=== PATIENT | female | born 1985 | race Caucasian/White ===

== ENCOUNTER → 2018-05-12 13:57 | Observation (INO) ==
--- NOTE | 2018-05-12 11:28 | OB/GYN Progress Note ---
Date of Encounter: 05/12/18 Time of Encounter: 11:25 - Assessment and Plan (1) and not yet delivered in third trimester Current Visit: Yes Status: Acute (2) 32 weeks gestation of Current Visit: Yes Status: Acute (3) Nausea and vomiting during Current Visit: Yes Status: Acute (4) Hematemesis Current Visit: Yes Status: Acute Qualifiers: Nausea presence: with nausea Qualified Code(s): K92.0 - Hematemesis (5) Right upper quadrant abdominal pain affecting in third trimester Current Visit: Yes Status: Acute We will order liver enzymes on the patient along with bilateral since we will check CBC and electrolytes and pancreatic enzymes. (6) History of cholestasis during Current Visit: Yes Status: Acute (7) Substance abuse affecting in third trimester, antepartum Current Visit: Yes Status: Acute Subjective - Subjective Interval history: Patient is a 33-year-old 4 para 2011 at 32-1/7 weeks who presented to labor and delivery with complaint of decreased movement, nausea vomiting, hematemesis, and right upper quadrant pain. Patient states that she woke up this morning had not felt the baby move and had a episode of emesis that had bright red blood in the. She has been complaining of right upper quadrant pain for the past 2 days. She did discuss this with her primary OB felt it might be a contraction because there was some contractions on the NST patient states is a sharp stabbing pain. Patient's already had a cholecystectomy. Patient is being followed closely for cholestasis in . Her bile acids were 11 last time she had them drawn, patient does admit to using cocaine approximately 3-1/2 weeks ago and is on Subutex. She states she had some social stressors that caused her to revert to the cocaine. She states she has not used anything in 3- 1/2 weeks. Patient states she does not really have much of an appetite that could lead if she has to. Denies any fevers or chills at home. Since arriving to the hospital she has been feeling some flutters is not really feeling any contractions and has had no other episodes of emesis. Antepartum ROS: other (Decreased movement, hematemesis, right upper quadrant.) Objective - Vital Signs Vital Signs: Intake and Output 05/11/18 05/12/18 05/12/18 23:59 07:59 15:59 Other: Weight 74.5 kg Patient Weight 05/12/18 23:59 Weight 74.5 kg - Exam FHR: category 1 FHR comments: heart tones 140s reassuring occasional contraction seen Auscultation: bilateral: normal Abdomen: Present: normal appearance, gravid (Nontender to palpation), other (No epigastric pain to palpation but has severe tenderness in the right upper reji drant under her ribs.)
[2018-05-12 11:51] LABS: Bilirubin,Urine Negative (Negative); Blood,Urine Negative (Negative); Clarity,Urine Cloudy (Clear); Color,Urine Yellow (Yellow); Glucose,Urine (UA) Normal (Normal); Ketones,Urine Negative (Negative); Leukocyte Esterase,Urine Large (Negative); Nitrite,Urine Negative (Negative); Protein,Urine Negative (Neg-Trace); Urobilinogen,Urine Normal (Normal)
[2018-05-12 11:55] LABS: Basophils % 0.3 %; Eosinophils # 0.2 K/mcL (0.0-0.6); Eosinophils % 3.3 %; Hematocrit 30.6 % (35.3-44.9); Hemoglobin 10.7 g/dL (11.5-15.4); Immature Granulocytes % 0.5 % (0-4); Lymphocytes # 0.8 K/mcL (0.6-4.6); Lymphocytes % 14.4 %; Mean Corpuscular Hemoglobin 30.4 pg (28.0-33.3); Mean Corpuscular Volume 86.9 fL (83.0-100.0); Mean Platelet Volume 11.5 fL (9.4-12.4); Monocytes # 0.3 K/mcL (0.0-1.3); Monocytes % 5.5 %; Neutrophils # 4.4 K/mcL (1.6-8.9); Platelet Count 138 K/mcL (140-400); Red Blood Count 3.52 M/mcL (3.82-4.97); Red Cell Distribution Width 13.2 % (11.5-14.5)
[2018-05-12 11:56] LABS: Bacteria,Urine Many per hpf (None-Few); Hyaline Casts,Urine None Seen per lpf (None-Few); RBC,Urine 0-3 per hpf (0-3); Squamous Epithelial Cell,Urine Many per lpf (None-Few)
[2018-05-12 12:06] LABS: Bilirubin,Direct 0.1 mg/dL (0.0-0.2); Bilirubin,Total 0.3 mg/dL (0.3-1.0); Potassium 3.8 mEq/L (3.5-5.1)
[2018-05-12 12:07] LABS: Amphetamine Screen,Urine Negative ng/mL (Cutoff=1000); Barbiturate Screen,Urine Negative ng/mL (Cutoff=200); Benzodiazepines Screen,Urine Negative ng/mL (Cutoff=200); Cannabinoid Screen,Urine Negative ng/mL (Cutoff = 50); Cocaine Screen,Urine Negative ng/mL (Cutoff= 300); Opiate Screen,Urine Negative ng/mL (Cutoff=300); Phencyclidine Screen,Urine Negative ng/mL (Cutoff=25)
[~2018-05-12 13:57] MED LIST: Pantoprazole 40 MG VIAL IVP ONE; Ringers Solution, Lactated 1,000 ML IVC SCH; Ringers Solution, Lactated 1,000 ML ONE
--- NOTE | 2018-05-12 14:39 | OB/GYN Progress Note ---
Date of Encounter: 05/12/18 Time of Encounter: 14:35 - Assessment and Plan (1) and not yet delivered in third trimester Current Visit: Yes Status: Acute (2) 32 weeks gestation of Current Visit: Yes Status: Acute (3) Nausea and vomiting during Current Visit: Yes Status: Acute (4) Hematemesis Current Visit: Yes Status: Acute Patient did receive 40 mg of Protonix IVPB Qualifiers: Nausea presence: with nausea Qualified Code(s): K92.0 - Hematemesis (5) Right upper quadrant abdominal pain affecting in third trimester Current Visit: Yes Status: Acute Patient to follow up with her primary [employer] if pain gets worse to go to the emergency room (6) History of cholestasis during Current Visit: Yes Status: Acute (7) Substance abuse affecting in third trimester, antepartum Current Visit: Yes Status: Acute Subjective - Subjective Interval history: Patient's sleeping and hungry. Baby is moving well is not having any complaints at this time of that. Patient's still having the pain in the right upper quadrant but only with palpation. She was having contractions spaced out with IV hydration and we did give her some Protonix. This point I see nothing obstetrical contribute to her pain all labs are normal, we are still waiting for the bile acids to come back in a couple days. I recommended she follow up with her primary OB and if pain is persistent to go to the emergency room. Objective - Vital Signs Vital Signs: Intake and Output 05/11/18 05/12/18 05/12/18 23:59 07:59 15:59 Other: Weight 74.5 kg Patient Weight 05/12/18 23:59 Weight 74.5 kg - Exam FHR: category 1 FHR comments: heart tones 140s and reassuring no contractions and Abdomen: Present: gravid Uterus: Present: normal Cervical dilation: 0 Cervix effacement: thick station: NE - Labs Labs: Abnormal lab results RBC 3.52 M/mcL (3.82-4.97) L 05/12/18 11:30 Hgb 10.7 g/dL (11.5-15.4) L 05/12/18 11:30 Hct 30.6 % (35.3-44.9) L 05/12/18 11:30 Plt Count 138 K/mcL (140-400) L 05/12/18 11:30 Alkaline Phosphatase 125 Units/L (34-104) H 05/12/18 11:30 Lactate Dehydrogenase 106 Units/L (140-271) L 05/12/18 11:30 Urine Clarity Cloudy (Clear) A 05/12/18 11:30 Ur Leukocyte Esterase Large (Negative) H 05/12/18 11:30 Urine Microscopic WBC 5-15 per hpf (0-3) H 05/12/18 11:30 Ur Squamous Epith Cells Many per lpf (None-Few) H 05/12/18 11:30 Urine Bacteria Many per hpf (None-Few) H 05/12/18 11:30 Ur Culture Indicated? NO. (NO) A 05/12/18 11:30
== END | disposition home or self-care (01) ==
LOC: 1NENULAB
PROVIDERS: ADMIT Registered Nurse; ATTEND Registered Nurse

== ENCOUNTER 2018-06-15 06:00 | Inpatient (IN) ==
[2018-06-15] MEDS ORDERED: Metoclopramide 10 MG/2 ML VIAL IVP PRN (06:57)
[2018-06-15] MEDS ORDERED: Penicillin G Potassium 5,000,000 UNIT in 0.9 % Sodium Chloride Mini Bag 100 ML IVPB ONE (06:57)
[2018-06-15] MEDS ORDERED: Naloxone 0.4 MG/ML INJ IVP PRN (06:57)
[2018-06-15] MEDS ORDERED: Famotidine 20 MG/2 ML VIAL IVP PRN (06:57)
[2018-06-15] MEDS ORDERED: Ringers Solution, Lactated 1,000 ML IVC SCH (07:00)
--- NOTE | 2018-06-15 07:22 | Anesthesia Evaluation PreOp ---
Date of Encounter: 06/15/18 Time of Encounter: 07:09 - Past History Planned Operation: 37wk induction for cholestatis, Cardiac History: Denies any Significant Hx Pulmonary History: Denies Any Significant HX CHILD ADOLESCENT CARE History: Other (previous gymnastics injury with 2 lower lumbar disc bulgs with occ left leg numbess denies any muscle weakness. reports not positionally dependent with symptoms.) Other Medical History: Hepatic (cholestatis currently on Ursodiol.), Other (2 1/2 months ago cocaine usage, currently on subutex, anxiety, depression) Anesthesia History: No Prior Anesthetic Complications, Past Anesthesia (2 previous epidurals patient stated they went little higher before, denies any family hx of comp.) Alcohol Use: none Drug use: cocaine Medications and Allergies Abilify 5 mg PO ONCE 05/12/18 [History] Tablet 1 tab PO DAILY 05/12/18 [History] Subutex 16 mg PO ONCE 05/12/18 [History] Ursodiol 300 mg PO QID 05/12/18 [History] Wellbutrin 150 mg PO ONCE 05/12/18 [History] Allergy/AdvReac Type Severity Reaction Status Date / Time Sulfa (Sulfonamide Allergy Mild Anaphylaxis Verified 06/15/18 06:53 Antibiotics) gluten Allergy Gastrointestinal Verified 06/15/18 06:54 Upset Anesthesia Exam - HEENT Pupil (Motor): Pupils equal Mallampati: I Teeth: Normal Oral Opening: Greater than 3 - CHILD ADOLESCENT CARE LOC: Oriented CHILD ADOLESCENT CARE Motor: Normal RUE, Normal LUE, Normal RLE, Normal LLE, Normal Face CHILD ADOLESCENT CARE Sensory: Normal: RUE, LUE, RLE, LLE, Face - Cardiac Rhythm: Regular Murmur: None - Pulmonary Breath Sounds: bilateral Clear Respiratory Effort: Symmetrical Anesthesia Assess/Plan ASA Score: 2 Level of consciousness: Cooperative, Oriented Anesthetic Plan: General, Spinal, Epidural Monitoring Plan: Standard Monitors Recovery Plan: PACU
[2018-06-15 07:26] LABS: Eosinophils # 0.2 K/mcL (0.0-0.6); Eosinophils % 3.8 %; Hematocrit 32.8 % (35.3-44.9); Hemoglobin 11.3 g/dL (11.5-15.4); Immature Granulocytes % 0.2 % (0-4); Lymphocytes # 0.9 K/mcL (0.6-4.6); Lymphocytes % 18.8 %; Mean Corpuscular HGB Conc 34.5 g/dL (31.6-35.5); Mean Corpuscular Hemoglobin 30.8 pg (28.0-33.3); Mean Corpuscular Volume 89.4 fL (83.0-100.0); Mean Platelet Volume 12.4 fL (9.4-12.4); Monocytes # 0.3 K/mcL (0.0-1.3); Monocytes % 7.5 %; Neutrophils # 3.2 K/mcL (1.6-8.9); Platelet Count 101 K/mcL (140-400); Red Blood Count 3.67 M/mcL (3.82-4.97); Red Cell Distribution Width 13.2 % (11.5-14.5); Segmented Neutrophils % 69.7 %
[2018-06-15] MEDS ORDERED: Epidural Premix (fent/bupiv) 110 ML EP SCH (07:30)
[2018-06-15] MEDS ORDERED: miSOPROStol 25 MCG TABLET VG PRN (07:41)
[2018-06-15] MEDS ORDERED: Penicillin G Potassium 2,500,000 UNIT in 0.9 % Sodium Chloride 100 ML IVPB SCH (08:00)
--- NOTE | 2018-06-15 08:21 | OB/GYN History & Physical ---
Date of Encounter: 06/15/18 Time of Encounter: 08:14 Assessment and Plan (1) and not yet delivered in third trimester Current visit: Yes Status: Acute (2) Gestational diabetes Current visit: Yes Status: Acute Qualifiers: Gestational diabetes mellitus control: diet-controlled Trimester: third trimester Qualified Code(s): O24.410 - Gestational diabetes mellitus in , diet controlled (3) Elective induction of labor planned Current visit: Yes Status: Acute We will induce with a Garner catheter and Cytotec plan is to anticipate vaginal delivery (4) 37 or more weeks gestation of Current visit: Yes Status: Acute (5) History of cholestasis during Current visit: No Status: Acute (6) Substance abuse affecting in third trimester, antepartum Current visit: No Status: Acute (7) Positive GBS test Current visit: Yes Status: Acute We will start penicillin 5 million units loading dose and 2.5 every 4 hours unti l delivery History of Present Illness HPI: Ms. Dorsey is a 33 year old female 4 para 2011 at 37-0/7 weeks who is brought in for induction of labor secondary to cholestasis in . Patient having issues with pruritus last bile acid was 34. It is recommended once she got to 37 weeks she would be induced. Patient is an A1 gestational diabetic has been well-controlled unfortunately has not been checking her sugars for the last week because her insurance would not approve first streps and she was waiting for the prior authorization to go through she has been doing blood sugars prior to that there were running in the 80s to 90s for fastings. And less than 124 2 hour postprandials. Patient has been having contractions but nothing she can time and she is GBS positive. Patient is penicillin negative recommend starting penicillin. She states she typically has long labors however patient's last induction was at term that he only use Pitocin she had an unfavorable cervix from what she is telling me. I recommended starting her with a Garner catheter and vaginal Cytotec to get labor going. Patient does take Suboxone. She is no longer in a group has been transferred to another group due to multiple positive screens. Patient does have active Scripts per her [facility] report. Patient is A positive rubella positive GBS positive Vericella positive Past Med Surg Social Fam HX - Past Medical History Source: patient Medical history: asthma Additional medical history: ciliac Disease, cholestasis in , A1 gesta tional diabetic Psychiatric history: anxiety, bipolar, depression - Past Surgical History Surgical History: cholecystectomy Additional surgical history: D&C 2008 - Social History Smoking Status: Never smoker Smokeless Tobacco Status: No Alcohol use: none Drug use: cocaine, other (Subutex) Current living situation: Home - Independent Activity Level: Independent ambulation Recent Out of Country Travel Within the Last 8 Weeks: No Exposure or Possible Exposure to Illness During Travel: No - Family History Mother Living Status: Still Living Hx Family Cardiac Disorders: No Hx Family Respiratory Disorders: No Hx Family Cancer: Yes (lymphoma) Hx Family GI Disorders: Yes (IBD) Hx Family Endocrine Disorder: No Hx Family Neuromuscular Disorders: No Hx Family Neurologic Disorders: No Hx Family HEENT Disorders: No Hx Family Autoimmune Disorders: No - Additional Family History Additional family history: Family history none contributory at this time Obstetrical History - Pregnancies : 4 Para: 2 Term: 1 : 0 Ab's: 1 Livin Medications and Allergies Abilify 5 mg PO ONCE 05/12/18 [History] Tablet 1 tab PO DAILY 05/12/18 [History] Subutex 16 mg PO ONCE 05/12/18 [History] Ursodiol 300 mg PO QID 05/12/18 [History] Wellbutrin 150 mg PO ONCE 05/12/18 [History] Allergy/AdvReac Type Severity Reaction Status Date / Time Sulfa (Sulfonamide Allergy Mild Anaphylaxis Verified 06/15/18 06:53 Antibiotics) gluten Allergy Gastrointestinal Verified 06/15/18 06:54 Upset Review of System OB All systems PM: reviewed and no additional remarkable complaints except as stated Exam - Constitutional Constitutional: well developed, well nourished, no acute distress, average body habitus - HEENT HEENT: EOMI, PERRL, Mucus Membranes Moist - Neck Neck exam: full ROM - Lungs Respiratory exam: CTAB - Cardiovascular Cardiovascular exam: RRR - Abdomen Abdomen: Present: bowel sounds normal, gravid ( heart tones 140s reactive contractions every 2 minutes) - Extremities Extremities exam: calf tenderness - Vagina Vagina: Present: normal moisture - Cervix Dilation: 1 Effacement: 80 Station: -2 - Uterus Uterus exam: Present: enlarged Results Result Diagrams: 06/15/18 07:00 06/15/18 07:00 Abnormal lab results RBC 3.67 M/mcL (3.82-4.97) L 06/15/18 07:00 Hgb 11.3 g/dL (11.5-15.4) L 06/15/18 07:00 Hct 32.8 % (35.3-44.9) L 06/15/18 07:00 Plt Count 101 K/mcL (140-400) L 06/15/18 07:00 All other labs normal. - VTE Reasons for not Prescribing Prophylaxis: Treatment not Indicated - Low risk for VTE
[2018-06-15 08:23] LABS: Amphetamine Screen,Urine Negative ng/mL (Cutoff=1000); Barbiturate Screen,Urine Negative ng/mL (Cutoff=200); Benzodiazepines Screen,Urine Negative ng/mL (Cutoff=200); Cannabinoid Screen,Urine Negative ng/mL (Cutoff = 50); Cocaine Screen,Urine Negative ng/mL (Cutoff= 300); Opiate Screen,Urine Negative ng/mL (Cutoff=300); Phencyclidine Screen,Urine Negative ng/mL (Cutoff=25)
--- NOTE | 2018-06-15 13:06 | Anesthesia Procedures ---
Date of Encounter: 06/15/18 Time of Encounter: 12:38 Procedures: Anesthesia - Epidural/Spinal Patient ID/Chart reviewed: Yes Patient examined: Yes OB Eval: Gestational age: 37 OB Eval: : 4 OB Eval: Hx Para: 2 OB Eval: Contractions: Non-stressed pattern Consent Obtained: Yes Supplemental Oxygen: None/Room Air Site Prep: Aseptic Technique, Sterile prep and drape, 0.5% Chlorhexidine/Alcohol Patient position: upright Local Anesthetic: Lidocaine 1% Amount of Local Anesthetic used: 2 Touhy Needle Gauge: 18 Touhy Needle Depth (cm): 7 Catheter Depth at Skin (cm): 12 Test Dose (1.5% Lido + Epi): Volume given (mls): 4 Test Dose Result: Negative Loading Dose: Other: 10ml from solution Loading Dose Administered: Thru Catheter Infusion Med: 0.125% Bupivacaine w/ 2 mcg/ml Fentanyl Infusion Rate (mls/hr): [address]: Tegaderm, Tape Interspace Used: L3-L4 Loss of Resistance (LIZETH): Yes (saline) Blood: No CSF: Yes (with 25g sprotte only, no INJ) Paresthesia: No Procedure: vss though out procedure, FHR stable per RN's
--- NOTE | 2018-06-15 13:33 | OB Labor Progress Note ---
Date of Encounter: 06/15/18 Time of Encounter: 13:29 Labor Progress Note - Subjective Subjective: The patient's Garner catheter is out epidural placed and is comfortable at this time. - Cervix Cervix: 4/80/-2 AROM large amount clear fluid - Heart Tones Heart Tones: heart tones 140s reactive - Prichard Prichard: IUPC placed contractions every 2 minutes adequate - Interventions Interventions: If patient does not make cervical change on her own will augment with Pitocin plan is to anticipate vaginal deliver
[2018-06-15] MEDS ORDERED: Oxytocin 20 units/ LR 1000 mL 20 UNIT/1,000 ML BAG IVC SCH ×2 (15:30→20:39)
--- NOTE | 2018-06-15 16:22 | OB Labor Progress Note ---
Date of Encounter: 06/15/18 Time of Encounter: 16:20 Labor Progress Note - Subjective Subjective: Patient comfortable with epidural - Cervix Cervix: 6-7/100/0 - Heart Tones Heart Tones: Baseline 150 Moderate variability Accelerations present 15x15 Deep variable decelerations and late decelerations FHR Category II - [place] [employer] [place] [employer]: Contractions every 2-3 minutes and palpate moderate. Coupleting at times - Interventions Interventions: SVE Position change to peanut ball left - Plan Physician notified: Yes Physician notified details: Dee notified of category II tracing - advised to proceed as planned Plan: Continue induction management Continue Accu-Cheks every 4 hours Frequent position changes with peanutball Increase Pitocin if needed Anticipate vaginal delivery
--- NOTE | 2018-06-15 17:58 | OB/GYN Procedure Note ---
Delivery - Delivery Date: 06/15/18 Provider: Adam Price Intrapartum events: none Delivery induction: terry, misoprostol Delivery augmentation: rupture of membranes Delivery monitor: external FHT, external uterine, internal uterine Anesthesia: epidural Quantitated Blood Loss: 100 - (s) A Delivery Date: 06/15/18 Delivery Time: 16:58 Presentation: vertex Position: OA Route of delivery: Gender: Female Viability: Viable Pounds: 7 Ounces: 0 Weight Gram: 3.17 kg at 1 minute: 2 at 5 mins: 9 Shoulder Dystocia: not encountered Specimens collected: cord blood Placenta: spontaneous Cord: nuchal cord, 3 umbilical vessels, delivered through nuchal - Repair Episiotomy: none Laceration Description: Periurethral (Right), Labial (Left) - Complications Delivery complications: none Delivery comments: Patient is a 33-year-old 4 para 2011 at 37-0/7 weeks who was brought in for an induction of labor secondary to cholestasis in . Patient been having issues that been monitored twice weekly with NSTs with elevated bile acids she was advised when she got to 37 week she will need to be induced she is also an A1 gestational diabetic relatively well controlled. She has not been able to do blood sugars for the past week when [facility] was waiting for the office to get her strips prior authorized. Patient was brought to labor and delivery where she received Terry catheter and vaginal Cytotec once catheter was out she was 4 cm she received an epidural and she was artificially ruptured. She did not require any additional augmentation patient progressed probably became complete and pushed for approximately 15 minutes delivering a viable female infant in occiput anterior presentation at 1658. There was a nuchal cord which was tight around the body and on which the patient delivered through was was delivered the infant was placed on the abdomen but we had minimal response cord was immediately cut and was taken over to the warmer Apgars were 2 at 5 minutes 9 at 5 minute infant weight was 7 lbs. 0 oz. Cord gases and blood were then collected placenta was then delivered spontaneously with a three-vessel cord. Paraprofessional Aide Dr. Price, anesthesia epidural, estimated blood loss 100 mL. Patient had a small right periurethral which was bleeding repaired with 3-0 Monocryl in a running stitch and she had a small labial laceration on the left with the distal aspect of the labia minora had been this was reapproximated with a 3-0 Monocryl vagina perineum was noted to be intact all needles lap sponge counts were correct she will be observed 2 hours before being taken floor. She was GBS positive had received antibiotics. - Disposition Mom disposition: stable in LDR disposition: stable in LDR
[2018-06-15] MEDS ORDERED: BuPROPion SR (12 HR) 150 MG TABLET PO SCH (20:39)
[2018-06-15] MEDS ORDERED: Acetaminophen 325 MG TABLET PO PRN (20:39)
[2018-06-15] MEDS ORDERED: ARIPiprazole 5 MG TABLET PO SCH (20:39)
[2018-06-15] MEDS: Ibuprofen 600 MG TABLET PO PRN (21:18)
[2018-06-15] MEDS: *HR* Buprenorphine HCl 8 MG TAB.SUBL SL SCH (23:00)
[2018-06-16] MEDS: Ibuprofen 600 MG TABLET PO PRN ×2 (03:32→09:40)
[2018-06-16 08:03] VITALS: BP 99/62
[2018-06-16] MEDS: *HR* Buprenorphine HCl 8 MG TAB.SUBL SL SCH (08:45)
[2018-06-16] MEDS ORDERED: Prenatal Vit/FA 1 EACH TABLET PO SCH (09:00)
[2018-06-16] MEDS ORDERED: NON-FORMULARY MEDICATION 1 EACH EACH (Prenatal Tablet 1 TAB) PO SCH (09:00)
--- NOTE | 2018-06-16 09:26 | Discharge Summary ---
Date of Encounter: 06/16/18 Time of Encounter: 09:24 - Discharge Diagnosis (1) Vaginal delivery Priority: Primary Status: Acute Comments: Patient meeting day one milestones. Pain well-controlled with prescribed medications. Voiding without difficulty, tolerating regular diet, bleeding light. No bowel movement yet. Anticipate discharge today to guest status (2) Intrahepatic cholestasis of , delivered, curr hospitalization Priority: Secondary Status: Acute Comments: Patient induced and delivered due to condition. Ursodiol discontinued at this time (3) Breast feeding status of mother Priority: Secondary Status: Acute Comments: support as needed We will provide prescription for breast pump (4) Periurethral laceration, delivered, current hospitalization Priority: Secondary Status: Acute Comments: Motrin, Dermoplast, ice packs as needed for discomfort (5) Gestational diabetes, diet controlled Priority: Secondary Status: Acute Comments: Patient is to follow-up in 4 weeks for 2 hour glucose tolerance test Qualifiers: Trimester: unspecified trimester Qualified Code(s): O24.410 - Gestational diabetes mellitus in , diet controlled - Discharge Medications Prescriptions: New Acetaminophen [Tylenol] 650 mg PO Q6HR PRN tablet PRN Reason: Mild Pain Ibuprofen [Motrin] 600 mg PO Q6HR PRN #60 tablet PRN Reason: Cramping Docusate [Colace] 100 mg PO BID capsule Continued Wellbutrin 150 mg PO ONCE Subutex 16 mg PO ONCE Tablet 1 tab PO DAILY Abilify 5 mg PO ONCE Discontinued Ursodiol 300 mg PO QID Home Medications: Abilify 5 mg PO ONCE 05/12/18 [History] Tablet 1 tab PO DAILY 05/12/18 [History] Subutex 16 mg PO ONCE 05/12/18 [History] Wellbutrin 150 mg PO ONCE 05/12/18 [History] Acetaminophen [Tylenol] 650 mg PO Q6HR PRN tablet 06/16/18 [Rx] Docusate [Colace] 100 mg PO BID capsule 06/16/18 [Rx] Ibuprofen [Motrin] 600 mg PO Q6HR PRN #60 tablet 06/16/18 [Rx] Allergies/Adverse Reactions: Allergy/AdvReac Type Severity Reaction Status Date / Time Sulfa (Sulfonamide Allergy Mild Anaphylaxis Verified 06/15/18 06:53 Antibiotics) gluten Allergy Gastrointestinal Verified 06/15/18 06:54 Upset Data Procedures and tests throughout hospitalization: Laboratory Tests 06/15/18 06/15/18 06/15/18 07:00 07:00 07:00 WBC 4.5 RBC 3.67 L Hgb 11.3 L Hct 32.8 L MCV 89.4 MCH 30.8 MCHC 34.5 RDW 13.2 Plt Count 101 L MPV 12.4 Immature Gran % 0.2 Seg Neutrophils % 69.7 Lymphocytes % 18.8 Monocytes % 7.5 Eosinophils % 3.8 Basophils % 0.0 Neutrophils # 3.2 Lymphocytes # 0.9 Monocytes # 0.3 Eosinophils # 0.2 Basophils # 0.0 Glucose 98 POC Glucose Urine Opiates Screen Negative Ur Barbiturates Screen Negative Ur Phencyclidine Scrn Negative Ur Amphetamines Screen Negative U Benzodiazepines Scrn Negative Urine Cocaine Screen Negative U Marijuana (THC) Screen Negative Ur Drug Screen Interp See Below 06/15/18 06/15/18 06/15/18 11:12 15:20 16:22 WBC RBC Hgb Hct MCV MCH MCHC RDW Plt Count MPV Immature Gran % Seg Neutrophils % Lymphocytes % Monocytes % Eosinophils % Basophils % Neutrophils # Lymphocytes # Monocytes # Eosinophils # Basophils # Glucose POC Glucose 81 78 90 Urine Opiates Screen Ur Barbiturates Screen Ur Phencyclidine Scrn Ur Amphetamines Screen U Benzodiazepines Scrn Urine Cocaine Screen U Marijuana (THC) Screen Ur Drug Screen Interp Labs on day of discharge: Labs from last 24 hours 06/15/18 06/15/18 06/15/18 16:22 15:20 11:12 POC Glucose 90 78 81 Date of admission: 06/15/18 06:17 Primary care physician: PCP NONE Consults: 06/15/18 06:59 Consult to Web Master (W&C) [CONS] Routine Reason For Exam: Reason for SW Consult: cocaine use during no custody of other children, paternity 06/15/18 20:39 Consult to Professor Of Radiology [CONS] Routine Comment: Vaginal delivery, consult needed Consult to Web Master [CONS] Routine Reason for SW Consult: subutex use Discharging clinician: Matilda Nelson Anticipated date of discharge: 06/16/18 - Patient Status Disposition: Home, Self-Care Condition: Good Functional capacity at discharge: independent ambulation Overall status at discharge: patient is progressing back to baseline - Discharge Instructions Follow Up With: NONE,PCP [Primary Care Provider] - - Diet and Activity Activity: increase activity as tolerated Diet: regular diet Hospital Course Reason for admission: induction of labor (cholestasis and GDM), IUP at term Delivery: Episiotomy: none Laceration: other (labial/periurethral) Other procedures: none complications: none Discharge diagnosis: IUP at term delivered Ethel baby: female Hospital course: Delivery Date: 06/15/18 Provider: Adam Price Intrapartum events: none Delivery induction: terry, misoprostol Delivery augmentation: rupture of membranes Delivery monitor: external FHT, external uterine, internal uterine Anesthesia: epidural Quantitated Blood Loss: 100 - (s) Infant A Delivery Date: 06/15/18 Delivery Time: 16:58 Presentation: vertex Position: OA Route of delivery: Gender: Female Viability: Viable Pounds: 7 Ounces: 0 Weight Gram: 3.17 kg at 1 minute: 2 at 5 mins: 9 Shoulder Dystocia: not encountered Specimens collected: cord blood Placenta: spontaneous Cord: nuchal cord, 3 umbilical vessels, delivered through nuchal - Repair Episiotomy: none Laceration Description: Periurethral (Right), Labial (Left) - Complications Delivery complications: none Delivery comments: Patient is a 33-year-old 4 para 2011 at 37-0/7 weeks who was brought in for an induction of labor secondary to cholestasis in . Patient been having issues that been monitored twice weekly with NSTs with elevated bile acids she was advised when she got to 37 week she will need to be induced she is also an A1 gestational diabetic relatively well controlled. She has not been able to do blood sugars for the past week when out [facility] was waiting for the office to get her strips prior authorized. Patient was brought to labor and delivery where she received Terry catheter and vaginal Cytotec once catheter was out she was 4 cm she received an epidural and she was artificially ruptured. She did not require any additional augmentation patient progressed probably became complete and pushed for approximately 15 minutes delivering a viable female infant in occiput anterior presentation at 1658. There was a nuchal cord which was tight around the body and on which the patient delivered through was infant was delivered the infant was placed on the abdomen but we had minimal response cord was immediately cut and infant was taken over to the warmer Apgars were 2 at 5 minutes 9 at 5 minute infant weight was 7 lbs. 0 oz. Cord gases and blood were then collected placenta was then delivered spontaneously with a three-vessel cord. Host Coordinator Dr. Price, anesthesia epidural, estimated blood loss 100 mL. Patient had a small right periurethral which was bleeding repaired with 3-0 Monocryl in a running stitch and she had a small labial laceration on the left with the distal aspect of the labia minora had been this was reapproximated with a 3-0 Monocryl vagina perineum was noted to be intact all needles lap sponge counts were correct she will be observed 2 hours before being taken floor. She was GBS positive had received antibiotics. - Disposition Mom disposition: stable in LDR disposition: stable in LDR Time Attestation: Total time spent providing and/or coordinating discharge services: Time Spent: Less than 30 minutes Exam - Constitutional Vitals: Temp Pulse Resp BP Pulse Ox 98.3 F 89 16 99/62 96 06/16/18 08:02 06/16/18 08:02 06/16/18 08:02 06/16/18 08:02 06/16/18 03:39 General appearance IM: A&O X 3, pleasant, no acute distress, answers questions appropriately - Respiratory Respiratory exam: Present: CTAB - Cardiovascular Cardiovascular exam IM: Present: RRR, +S1, +S2 - GI/Abdominal GI/Abdominal exam IM: normal bowel sounds, soft - Rectal Rectal exam: deferred - External exam: normal external exam - Extremities Exam Extremities exam IM: Present: full ROM, normal capillary refill, normal inspect ion - Neurological Exam Neurological exam: alert, normal gait, oriented X3
== END 2018-06-16 14:07 | disposition home or self-care (01) | DRG 560 ==
LOC: 1NENULAB 06:17 → 1NENUOBS 20:38
PROVIDERS: ADMIT Obstetrics & Gynecology; ATTEND Obstetrics & Gynecology